=== PATIENT | male | born 1930 | race Caucasian/White ===

== ENCOUNTER → 2016-08-13 | Outpatient (CLI) | payer OTHER ==
--- NOTE | 2016-08-13 15:35 | DX ---
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 A small right pleural effusion is difficult to exclude. The remainder of the lungs are normally aerated. Ther e is no obvious infiltrate. There is no mass or adenopathy. Heart size and pulmonary vascularity look s normal. Bones are unremarkable for age. Impression:1. Right basilar platter atelectasis versus scar +-small pleural effusion. A message was left for Dr. Westbrook at 3:34 PM
== END ==
LOC: BRMIMAGING 14:19
PROVIDERS: ATTEND Family Medicine
DX: J90 Pleural effusion, not elsewhere classified (principal)
CPT/HCPCS: 71020-PO